=== PATIENT | female | born 1945 | race Caucasian/White ===

== ENCOUNTER 2021-07-28 18:19 | Inpatient (IN) ==
[2021-07-29] MEDS ORDERED: *HR* HYDROmorphone 2 MG TABLET PO PRN (04:00)
[2021-07-29 08:45] LABS: Basophils % 0.3 %; Eosinophils # 0.1 K/mcL (0.0-0.6); Eosinophils % 1.8 %; Hematocrit 29.1 % (35.3-44.9); Hemoglobin 8.6 g/dL (11.5-15.4); Immature Granulocytes % 1.2 % (0-4); Lymphocytes # 1.2 K/mcL (0.6-4.6); Lymphocytes % 16.8 %; Mean Corpuscular HGB Conc 29.6 g/dL (31.6-35.5); Mean Corpuscular Hemoglobin 24.2 pg (28.0-33.3); Mean Platelet Volume 9.4 fL (9.4-12.4); Monocytes % 13.1 %; Neutrophils # 4.9 K/mcL (1.6-8.9); Platelet Count 473 K/mcL (140-400); Red Blood Count 3.55 M/mcL (3.82-4.97); Red Cell Distribution Width 20.3 % (11.5-14.5); Segmented Neutrophils % 66.8 %; White Blood Count 7.3 K/mcL (4.3-11.1)
[2021-07-29 08:57] LABS: BUN/Creatinine Ratio 15 (6-26); Blood Urea Nitrogen 7 mg/dL (8-23); Carbon Dioxide 32 mEq/L (23-29); Chloride 103 mEq/L (98-107); Glucose 89 mg/dL (70-105); Osmolality,Calculated 293 (280-300); Potassium 3.5 mEq/L (3.5-5.1); Sodium 143 mEq/L (136-145); eGFR For African Americans > 60 (> 60); eGFR For Non-African Americans > 60 (> 60)
[2021-07-29] MEDS: Mirtazapine 15 MG TABLET PO SCH (09:29)
[2021-07-29] MEDS: polyethylene glycoL 3350 17 GM POWD.PACK PO SCH (09:29)
[2021-07-29] MEDS: *HR* OxyCODONE ER (12 HR) 10 MG TABLET PO SCH ×3 (09:30→23:45)
[2021-07-29] MEDS: Folic Acid 1 MG TABLET PO SCH (09:31)
[2021-07-29] MEDS: Gabapentin 100 MG CAPSULE PO SCH ×3 (09:31→20:22)
[2021-07-29] MEDS: amLODIPine 5 MG TABLET PO SCH (09:31)
[2021-07-29] MEDS: *HR* OxyCODONE/APAP 10/325 TABLET PO PRN (15:51)
[2021-07-30] MEDS: polyethylene glycoL 3350 17 GM POWD.PACK PO SCH (08:27)
[2021-07-30] MEDS: amLODIPine 5 MG TABLET PO SCH (08:28)
[2021-07-30] MEDS: Mirtazapine 15 MG TABLET PO SCH (08:28)
[2021-07-30] MEDS: Gabapentin 100 MG CAPSULE PO SCH ×3 (08:28→21:31)
[2021-07-30] MEDS: Folic Acid 1 MG TABLET PO SCH (08:28)
[2021-07-30] MEDS: *HR* OxyCODONE ER (12 HR) 10 MG TABLET PO SCH ×3 (08:29→23:46)
[2021-07-31] MEDS: polyethylene glycoL 3350 17 GM POWD.PACK PO SCH (07:44)
[2021-07-31] MEDS: Mirtazapine 15 MG TABLET PO SCH (07:44)
[2021-07-31] MEDS: Gabapentin 100 MG CAPSULE PO SCH ×2 (07:45→21:09)
[2021-07-31] MEDS: amLODIPine 5 MG TABLET PO SCH (07:45)
[2021-07-31] MEDS: *HR* OxyCODONE ER (12 HR) 10 MG TABLET PO SCH ×2 (07:45→16:13)
[2021-07-31] MEDS: Folic Acid 1 MG TABLET PO SCH (07:45)
[2021-07-31] MEDS: *HR* OxyCODONE/APAP 10/325 TABLET PO PRN ×2 (14:07→21:09)
[2021-08-01] MEDS: *HR* OxyCODONE ER (12 HR) 10 MG TABLET PO SCH ×3 (00:26→16:09)
[2021-08-01] MEDS: *HR* Enoxaparin 40 MG/0.4 ML SYRINGE SQ SCH (05:29)
[2021-08-01] MEDS: *HR* OxyCODONE/APAP 10/325 TABLET PO PRN ×3 (05:29→21:45)
[2021-08-01] MEDS: Folic Acid 1 MG TABLET PO SCH (08:25)
[2021-08-01] MEDS: amLODIPine 5 MG TABLET PO SCH (08:25)
[2021-08-01] MEDS: polyethylene glycoL 3350 17 GM POWD.PACK PO SCH (08:26)
[2021-08-01] MEDS ORDERED: Gabapentin 100 MG CAPSULE PO SCH (09:00)
[2021-08-01 09:21] LABS: % Iron Saturation 7 % (15-50); Iron 15 mcg/dL (50-170); Transferrin 145 mg/dL (203-362)
[2021-08-01 09:47] LABS: Folate > 22.3 ng/mL (3.0-16.0); Vitamin B12 > 1500 pg/mL (250-1100)
[2021-08-01] MEDS: Sennosides/Docusate Sodium TABLET PO SCH (21:37)
[2021-08-02] MEDS: *HR* OxyCODONE ER (12 HR) 10 MG TABLET PO SCH ×3 (01:57→16:23)
[2021-08-02] MEDS: *HR* Enoxaparin 40 MG/0.4 ML SYRINGE SQ SCH (06:04)
[2021-08-02] MEDS: Folic Acid 1 MG TABLET PO SCH (08:03)
[2021-08-02] MEDS: amLODIPine 5 MG TABLET PO SCH (08:03)
[2021-08-02] MEDS: Sennosides/Docusate Sodium TABLET PO SCH ×2 (08:04→19:50)
[2021-08-02] MEDS: *HR* OxyCODONE Immed Rel 5 MG TABLET PO PRN (19:50)
[2021-08-03] MEDS: *HR* OxyCODONE ER (12 HR) 10 MG TABLET PO SCH ×4 (00:46→23:50)
[2021-08-03] MEDS: *HR* Enoxaparin 40 MG/0.4 ML SYRINGE SQ SCH (06:21)
[2021-08-03] MEDS: Folic Acid 1 MG TABLET PO SCH (07:50)
[2021-08-03] MEDS: amLODIPine 5 MG TABLET PO SCH (07:50)
[2021-08-03] MEDS: Sennosides/Docusate Sodium TABLET PO SCH ×2 (07:51→20:25)
[2021-08-04] MEDS: *HR* Enoxaparin 40 MG/0.4 ML SYRINGE SQ SCH (05:50)
[2021-08-04] MEDS: amLODIPine 5 MG TABLET PO SCH (07:44)
[2021-08-04] MEDS: Sennosides/Docusate Sodium TABLET PO SCH ×2 (07:45→19:58)
[2021-08-04] MEDS: Folic Acid 1 MG TABLET PO SCH (07:45)
[2021-08-04] MEDS: *HR* OxyCODONE ER (12 HR) 10 MG TABLET PO SCH ×2 (07:45→17:08)
[2021-08-05] MEDS: *HR* OxyCODONE ER (12 HR) 10 MG TABLET PO SCH ×4 (01:40→23:21)
[2021-08-05] MEDS: *HR* Enoxaparin 40 MG/0.4 ML SYRINGE SQ SCH (06:03)
[2021-08-05] MEDS: amLODIPine 5 MG TABLET PO SCH (09:16)
[2021-08-05] MEDS: Folic Acid 1 MG TABLET PO SCH (09:16)
[2021-08-05] MEDS: Sennosides/Docusate Sodium TABLET PO SCH ×2 (09:16→19:57)
[2021-08-06] MEDS: *HR* Enoxaparin 40 MG/0.4 ML SYRINGE SQ SCH (05:33)
[2021-08-06] MEDS: Folic Acid 1 MG TABLET PO SCH (08:13)
[2021-08-06] MEDS: Sennosides/Docusate Sodium TABLET PO SCH ×2 (08:13→19:47)
[2021-08-06] MEDS: amLODIPine 5 MG TABLET PO SCH (08:13)
[2021-08-06] MEDS: *HR* OxyCODONE ER (12 HR) 10 MG TABLET PO SCH ×2 (08:13→17:14)
[2021-08-06] MEDS: *HR* OxyCODONE Immed Rel 5 MG TABLET PO PRN (21:44)
[2021-08-07] MEDS: *HR* OxyCODONE ER (12 HR) 10 MG TABLET PO SCH ×3 (00:24→15:54)
[2021-08-07] MEDS: *HR* Enoxaparin 40 MG/0.4 ML SYRINGE SQ SCH (05:34)
[2021-08-07] MEDS: Sennosides/Docusate Sodium TABLET PO SCH ×2 (07:59→19:28)
[2021-08-07] MEDS: Folic Acid 1 MG TABLET PO SCH (07:59)
[2021-08-07] MEDS: amLODIPine 5 MG TABLET PO SCH (07:59)
[2021-08-08] MEDS: *HR* OxyCODONE ER (12 HR) 10 MG TABLET PO SCH ×4 (00:31→23:59)
[2021-08-08] MEDS: *HR* OxyCODONE Immed Rel 5 MG TABLET PO PRN ×2 (02:56→19:40)
[2021-08-08] MEDS: *HR* Enoxaparin 40 MG/0.4 ML SYRINGE SQ SCH (05:25)
[2021-08-08 07:30] LABS: Basophils % 0.3 %; Eosinophils # 0.1 K/mcL (0.0-0.6); Eosinophils % 1.2 %; Hematocrit 26.8 % (35.3-44.9); Immature Granulocytes % 1.6 % (0-4); Lymphocytes # 1.8 K/mcL (0.6-4.6); Lymphocytes % 18.7 %; Mean Corpuscular HGB Conc 29.9 g/dL (31.6-35.5); Mean Corpuscular Hemoglobin 24.5 pg (28.0-33.3); Monocytes # 0.9 K/mcL (0.0-1.3); Monocytes % 9.7 %; Neutrophils # 6.5 K/mcL (1.6-8.9); Platelet Count 499 K/mcL (140-400); Red Blood Count 3.27 M/mcL (3.82-4.97); Red Cell Distribution Width 19.5 % (11.5-14.5); Segmented Neutrophils % 68.5 %; White Blood Count 9.5 K/mcL (4.3-11.1)
[2021-08-08] MEDS: Sennosides/Docusate Sodium TABLET PO SCH ×2 (07:51→19:42)
[2021-08-08] MEDS: Folic Acid 1 MG TABLET PO SCH (07:51)
[2021-08-08] MEDS: amLODIPine 5 MG TABLET PO SCH (07:51)
[2021-08-08 08:01] LABS: BUN/Creatinine Ratio 19 (6-26); Blood Urea Nitrogen 13 mg/dL (8-23); Calcium 9.4 mg/dL (8.6-10.3); Carbon Dioxide 33 mEq/L (23-29); Chloride 100 mEq/L (98-107); Glucose 95 mg/dL (70-105); Osmolality,Calculated 290 (280-300); Potassium 3.9 mEq/L (3.5-5.1); Sodium 140 mEq/L (136-145); eGFR For African Americans > 60 (> 60); eGFR For Non-African Americans > 60 (> 60)
[2021-08-08 10:34] LABS: Ferritin > 1500 ng/mL (10-120)
[2021-08-09] MEDS: *HR* OxyCODONE Immed Rel 5 MG TABLET PO PRN (02:06)
[2021-08-09] MEDS: *HR* Enoxaparin 40 MG/0.4 ML SYRINGE SQ SCH (05:55)
[2021-08-09] MEDS: amLODIPine 5 MG TABLET PO SCH (09:15)
[2021-08-09] MEDS: *HR* OxyCODONE ER (12 HR) 10 MG TABLET PO SCH ×2 (09:15→17:25)
[2021-08-09] MEDS: Folic Acid 1 MG TABLET PO SCH (09:15)
[2021-08-09] MEDS: Sennosides/Docusate Sodium TABLET PO SCH ×2 (09:15→20:25)
[2021-08-10] MEDS: *HR* OxyCODONE ER (12 HR) 10 MG TABLET PO SCH ×3 (00:21→17:25)
[2021-08-10] MEDS: *HR* Enoxaparin 40 MG/0.4 ML SYRINGE SQ SCH (05:52)
[2021-08-10 07:52] LABS: Basophils % 0.4 %; Eosinophils # 0.1 K/mcL (0.0-0.6); Eosinophils % 1.1 %; Hematocrit 29.3 % (35.3-44.9); Hemoglobin 8.6 g/dL (11.5-15.4); Immature Granulocytes % 1.2 % (0-4); Lymphocytes # 1.5 K/mcL (0.6-4.6); Lymphocytes % 17.6 %; Mean Corpuscular HGB Conc 29.4 g/dL (31.6-35.5); Mean Corpuscular Hemoglobin 24.3 pg (28.0-33.3); Mean Corpuscular Volume 82.8 fL (83.0-100.0); Mean Platelet Volume 9.3 fL (9.4-12.4); Monocytes % 12.6 %; Neutrophils # 5.6 K/mcL (1.6-8.9); Platelet Count 453 K/mcL (140-400); Red Blood Count 3.54 M/mcL (3.82-4.97); Red Cell Distribution Width 19.6 % (11.5-14.5); Segmented Neutrophils % 67.1 %; White Blood Count 8.3 K/mcL (4.3-11.1)
[2021-08-10 07:54] LABS: BUN/Creatinine Ratio 18 (6-26); Blood Urea Nitrogen 14 mg/dL (8-23); Calcium 10.1 mg/dL (8.6-10.3); Carbon Dioxide 33 mEq/L (23-29); Chloride 95 mEq/L (98-107); Glucose 95 mg/dL (70-105); Osmolality,Calculated 284 (280-300); Potassium 3.9 mEq/L (3.5-5.1); Sodium 137 mEq/L (136-145); eGFR For African Americans > 60 (> 60); eGFR For Non-African Americans > 60 (> 60)
[2021-08-10] MEDS: Sennosides/Docusate Sodium TABLET PO SCH ×2 (09:14→19:44)
[2021-08-10] MEDS: amLODIPine 5 MG TABLET PO SCH (09:14)
[2021-08-10] MEDS: Folic Acid 1 MG TABLET PO SCH (09:16)
[2021-08-11] MEDS: *HR* OxyCODONE Immed Rel 5 MG TABLET PO PRN ×3 (00:31→21:12)
[2021-08-11] MEDS: *HR* Enoxaparin 40 MG/0.4 ML SYRINGE SQ SCH (06:11)
[2021-08-11] MEDS: *HR* OxyCODONE ER (12 HR) 10 MG TABLET PO SCH ×2 (06:11→17:47)
[2021-08-11 06:48] LABS: Basophils % 0.4 %; Eosinophils % 0.5 %; Hematocrit 28.8 % (35.3-44.9); Hemoglobin 8.6 g/dL (11.5-15.4); Immature Granulocytes % 1.3 % (0-4); Lymphocytes # 1.3 K/mcL (0.6-4.6); Lymphocytes % 15.1 %; Mean Corpuscular HGB Conc 29.9 g/dL (31.6-35.5); Mean Corpuscular Hemoglobin 24.2 pg (28.0-33.3); Mean Corpuscular Volume 81.1 fL (83.0-100.0); Mean Platelet Volume 9.2 fL (9.4-12.4); Monocytes # 1.1 K/mcL (0.0-1.3); Monocytes % 13.1 %; Neutrophils # 5.8 K/mcL (1.6-8.9); Platelet Count 443 K/mcL (140-400); Red Blood Count 3.55 M/mcL (3.82-4.97); Red Cell Distribution Width 19.5 % (11.5-14.5); Segmented Neutrophils % 69.6 %; White Blood Count 8.3 K/mcL (4.3-11.1)
[2021-08-11 07:10] LABS: BUN/Creatinine Ratio 20 (6-26); Blood Urea Nitrogen 14 mg/dL (8-23); Calcium 9.6 mg/dL (8.6-10.3); Carbon Dioxide 33 mEq/L (23-29); Chloride 95 mEq/L (98-107); Glucose 99 mg/dL (70-105); Osmolality,Calculated 289 (280-300); Potassium 3.7 mEq/L (3.5-5.1); Sodium 139 mEq/L (136-145); eGFR For African Americans > 60 (> 60); eGFR For Non-African Americans > 60 (> 60)
[2021-08-11] MEDS: amLODIPine 5 MG TABLET PO SCH (08:30)
[2021-08-11] MEDS ORDERED: 0.9 % Sodium Chloride 1,000 ML IVC SCH (08:30)
[2021-08-11] MEDS: Folic Acid 1 MG TABLET PO SCH (08:31)
[2021-08-11] MEDS: Sennosides/Docusate Sodium TABLET PO SCH ×2 (08:31→21:12)
[2021-08-12] MEDS: *HR* OxyCODONE ER (12 HR) 10 MG TABLET PO SCH ×2 (06:04→17:43)
[2021-08-12] MEDS: *HR* Enoxaparin 40 MG/0.4 ML SYRINGE SQ SCH (06:04)
[2021-08-12] MEDS ORDERED: D5% in 0.45% NACL 1,000 ML IVC SCH (07:45)
[2021-08-12] MEDS: Sennosides/Docusate Sodium TABLET PO SCH ×2 (09:23→19:56)
[2021-08-12] MEDS: amLODIPine 5 MG TABLET PO SCH (09:23)
[2021-08-12] MEDS: Folic Acid 1 MG TABLET PO SCH (09:23)
[2021-08-13] MEDS: *HR* OxyCODONE Immed Rel 5 MG TABLET PO PRN (03:35)
[2021-08-13] MEDS: *HR* Enoxaparin 40 MG/0.4 ML SYRINGE SQ SCH (05:37)
[2021-08-13] MEDS: *HR* OxyCODONE ER (12 HR) 10 MG TABLET PO SCH ×2 (05:38→18:14)
[2021-08-13 07:25] LABS: Basophils % 0.3 %; Eosinophils # 0.1 K/mcL (0.0-0.6); Eosinophils % 0.5 %; Hematocrit 26.1 % (35.3-44.9); Hemoglobin 7.8 g/dL (11.5-15.4); Immature Granulocytes % 1.3 % (0-4); Lymphocytes # 1.4 K/mcL (0.6-4.6); Lymphocytes % 14.7 %; Mean Corpuscular HGB Conc 29.9 g/dL (31.6-35.5); Mean Corpuscular Hemoglobin 24.5 pg (28.0-33.3); Mean Corpuscular Volume 81.8 fL (83.0-100.0); Mean Platelet Volume 9.6 fL (9.4-12.4); Monocytes # 1.4 K/mcL (0.0-1.3); Monocytes % 14.9 %; Neutrophils # 6.3 K/mcL (1.6-8.9); Platelet Count 363 K/mcL (140-400); Red Blood Count 3.19 M/mcL (3.82-4.97); Red Cell Distribution Width 19.8 % (11.5-14.5); Segmented Neutrophils % 68.3 %; White Blood Count 9.2 K/mcL (4.3-11.1)
[2021-08-13 08:19] LABS: BUN/Creatinine Ratio 24 (6-26); Blood Urea Nitrogen 13 mg/dL (8-23); Calcium 9.2 mg/dL (8.6-10.3); Carbon Dioxide 33 mEq/L (23-29); Chloride 97 mEq/L (98-107); Glucose 93 mg/dL (70-105); Magnesium 1.4 mg/dL (1.6-2.6); Osmolality,Calculated 284 (280-300); Potassium 3.5 mEq/L (3.5-5.1); Sodium 137 mEq/L (136-145); eGFR For African Americans > 60 (> 60); eGFR For Non-African Americans > 60 (> 60)
[2021-08-13] MEDS: Sennosides/Docusate Sodium TABLET PO SCH ×2 (08:27→19:38)
[2021-08-13] MEDS: amLODIPine 5 MG TABLET PO SCH (08:27)
[2021-08-13] MEDS: Folic Acid 1 MG TABLET PO SCH (08:28)
[2021-08-13] MEDS ORDERED: Ondansetron ODT 4 MG TAB.RAPDIS SL PRN (11:30)
[2021-08-13] MEDS: polyethylene glycoL 3350 17 GM POWD.PACK PO SCH (19:39)
[2021-08-14] MEDS: *HR* Enoxaparin 40 MG/0.4 ML SYRINGE SQ SCH (05:55)
[2021-08-14] MEDS: *HR* OxyCODONE ER (12 HR) 10 MG TABLET PO SCH ×2 (05:56→17:47)
[2021-08-14] MEDS: Folic Acid 1 MG TABLET PO SCH (08:32)
[2021-08-14] MEDS: polyethylene glycoL 3350 17 GM POWD.PACK PO SCH (08:33)
[2021-08-14] MEDS: Sennosides/Docusate Sodium TABLET PO SCH ×2 (08:33→20:20)
[2021-08-14] MEDS: amLODIPine 5 MG TABLET PO SCH (08:33)
[2021-08-15] MEDS: *HR* OxyCODONE ER (12 HR) 10 MG TABLET PO SCH ×2 (06:35→18:22)
[2021-08-15] MEDS: *HR* Enoxaparin 40 MG/0.4 ML SYRINGE SQ SCH (06:35)
[2021-08-15] MEDS: Sennosides/Docusate Sodium TABLET PO SCH ×2 (08:33→19:55)
[2021-08-15] MEDS: amLODIPine 5 MG TABLET PO SCH (08:33)
[2021-08-15] MEDS: Folic Acid 1 MG TABLET PO SCH (08:33)
[2021-08-15] MEDS: polyethylene glycoL 3350 17 GM POWD.PACK PO SCH (08:33)
[2021-08-15] MEDS: Ibuprofen 400 MG TABLET PO PRN (16:35)
[2021-08-16] MEDS: *HR* OxyCODONE Immed Rel 5 MG TABLET PO PRN (01:35)
[2021-08-16] MEDS: *HR* OxyCODONE ER (12 HR) 10 MG TABLET PO SCH ×2 (05:14→17:01)
[2021-08-16] MEDS: *HR* Enoxaparin 40 MG/0.4 ML SYRINGE SQ SCH (05:14)
[2021-08-16] MEDS: polyethylene glycoL 3350 17 GM POWD.PACK PO SCH (07:56)
[2021-08-16] MEDS: amLODIPine 5 MG TABLET PO SCH (07:56)
[2021-08-16] MEDS: Sennosides/Docusate Sodium TABLET PO SCH ×2 (07:57→21:42)
[2021-08-16] MEDS: Folic Acid 1 MG TABLET PO SCH (07:57)
[2021-08-16] MEDS: Ibuprofen 400 MG TABLET PO PRN (21:42)
[2021-08-17] MEDS: *HR* Enoxaparin 40 MG/0.4 ML SYRINGE SQ SCH (06:02)
[2021-08-17] MEDS: *HR* OxyCODONE ER (12 HR) 10 MG TABLET PO SCH ×2 (06:02→17:25)
[2021-08-17] MEDS: Ibuprofen 400 MG TABLET PO PRN ×2 (08:11→20:15)
[2021-08-17] MEDS: Folic Acid 1 MG TABLET PO SCH (08:26)
[2021-08-17] MEDS: polyethylene glycoL 3350 17 GM POWD.PACK PO SCH (08:27)
[2021-08-17] MEDS: amLODIPine 5 MG TABLET PO SCH (08:27)
[2021-08-17] MEDS: Sennosides/Docusate Sodium TABLET PO SCH ×2 (08:28→20:15)
[2021-08-18] MEDS: Ibuprofen 400 MG TABLET PO PRN (04:11)
[2021-08-18] MEDS: *HR* Enoxaparin 40 MG/0.4 ML SYRINGE SQ SCH (06:01)
[2021-08-18] MEDS: *HR* OxyCODONE ER (12 HR) 10 MG TABLET PO SCH ×2 (06:02→17:46)
[2021-08-18] MEDS: amLODIPine 5 MG TABLET PO SCH (08:00)
[2021-08-18] MEDS: Sennosides/Docusate Sodium TABLET PO SCH ×2 (08:00→21:16)
[2021-08-18] MEDS: Folic Acid 1 MG TABLET PO SCH (08:00)
[2021-08-18] MEDS: polyethylene glycoL 3350 17 GM POWD.PACK PO SCH (08:01)
[2021-08-19] MEDS: *HR* Enoxaparin 40 MG/0.4 ML SYRINGE SQ SCH (05:56)
[2021-08-19] MEDS: *HR* OxyCODONE ER (12 HR) 10 MG TABLET PO SCH ×2 (05:57→16:53)
[2021-08-19] MEDS: amLODIPine 5 MG TABLET PO SCH (08:08)
[2021-08-19] MEDS: Folic Acid 1 MG TABLET PO SCH (08:08)
[2021-08-19] MEDS: Sennosides/Docusate Sodium TABLET PO SCH ×2 (08:08→19:32)
[2021-08-20] MEDS: *HR* OxyCODONE ER (12 HR) 10 MG TABLET PO SCH ×3 (05:29→17:29)
[2021-08-20] MEDS: *HR* Enoxaparin 40 MG/0.4 ML SYRINGE SQ SCH (05:29)
[2021-08-20] MEDS: Sennosides/Docusate Sodium TABLET PO SCH ×2 (08:53→21:19)
[2021-08-20] MEDS: Folic Acid 1 MG TABLET PO SCH (08:53)
[2021-08-20] MEDS: amLODIPine 5 MG TABLET PO SCH (08:53)
[2021-08-20 09:29] LABS: Basophils % 0.2 %; Eosinophils % 0.1 %; Hematocrit 30.2 % (35.3-44.9); Immature Granulocytes % 1.5 % (0-4); Lymphocytes # 1.3 K/mcL (0.6-4.6); Lymphocytes % 11.5 %; Mean Corpuscular HGB Conc 29.8 g/dL (31.6-35.5); Mean Corpuscular Hemoglobin 24.2 pg (28.0-33.3); Mean Corpuscular Volume 81.2 fL (83.0-100.0); Mean Platelet Volume 9.4 fL (9.4-12.4); Monocytes # 1.1 K/mcL (0.0-1.3); Monocytes % 9.5 %; Platelet Count 483 K/mcL (140-400); Red Blood Count 3.72 M/mcL (3.82-4.97); Segmented Neutrophils % 77.2 %; White Blood Count 11.2 K/mcL (4.3-11.1)
[2021-08-20 09:49] LABS: Alanine Aminotransferase 44 Units/L (7-52); Albumin 3.3 g/dL (3.5-5.7); Albumin/Globulin Ratio 0.8 (1.1-2.2); Alkaline Phosphatase 356 Units/L (34-104); Aspartate Amino Transferase 45 Units/L (13-39); BUN/Creatinine Ratio 44 (6-26); Bilirubin,Total 0.4 mg/dL (0.3-1.0); Blood Urea Nitrogen 24 mg/dL (8-23); Calcium 9.7 mg/dL (8.6-10.3); Carbon Dioxide 28 mEq/L (23-29); Chloride 99 mEq/L (98-107); Glucose 111 mg/dL (70-105); Osmolality,Calculated 293 (280-300); Potassium 3.6 mEq/L (3.5-5.1); Sodium 139 mEq/L (136-145); Total Protein 7.3 g/dL (6.4-8.9); eGFR For African Americans > 60 (> 60); eGFR For Non-African Americans > 60 (> 60)
[2021-08-20 09:57] LABS: Neutrophils # 8.7 K/mcL (1.6-8.9)
[2021-08-20 16:46] LABS: Bilirubin,Urine Negative (Negative); Blood,Urine Negative (Negative); Clarity,Urine Clear (Clear); Color,Urine Yellow (Yellow); Glucose,Urine (UA) Normal (Normal); Ketones,Urine 15 mg/dL (Negative); Leukocyte Esterase,Urine Negative (Negative); Nitrite,Urine Negative (Negative); Protein,Urine Trace mg/dL (Neg-Trace); Urobilinogen,Urine Normal (Normal)
[2021-08-20] MEDS ORDERED: *HR* Metoprolol 5 MG/5 ML VIAL IVP PRN ×2 (16:58→18:21)
[2021-08-20] MEDS ORDERED: Isovue-370 500 ML BOTTLE IVP ONE ×4 (16:59→18:57)
[2021-08-20] MEDS: Piperacillin/Tazobactam 3.375 GM in 0.9 % Sodium Chloride Mini Bag 100 ML IVPB SCH (18:20)
[2021-08-20] MEDS ORDERED: Ondansetron 4 MG/2 ML VIAL IVP PRN (20:42)
[2021-08-20] MEDS ORDERED: Morphine Sulfate 2 MG/ML SYRINGE IVP PRN (20:48)
[2021-08-20] MEDS: 0.9 % Sodium Chloride 1,000 ML IVC SCH (22:02)
[2021-08-21] MEDS: Piperacillin/Tazobactam 3.375 GM in 0.9 % Sodium Chloride Mini Bag 100 ML IVPB SCH ×3 (02:02→19:00)
[2021-08-21] MEDS: *HR* OxyCODONE ER (12 HR) 10 MG TABLET PO SCH ×2 (05:56→18:59)
[2021-08-21] MEDS: *HR* Enoxaparin 40 MG/0.4 ML SYRINGE SQ SCH (05:56)
[2021-08-21 07:15] LABS: Basophils % 0.2 %; Eosinophils % 0.4 %; Hematocrit 26.3 % (35.3-44.9); Hemoglobin 7.8 g/dL (11.5-15.4); Immature Granulocytes % 1.5 % (0-4); Lymphocytes # 1.7 K/mcL (0.6-4.6); Lymphocytes % 15.5 %; Mean Corpuscular HGB Conc 29.7 g/dL (31.6-35.5); Mean Corpuscular Volume 80.9 fL (83.0-100.0); Mean Platelet Volume 9.4 fL (9.4-12.4); Monocytes # 1.2 K/mcL (0.0-1.3); Monocytes % 10.6 %; Neutrophils # 7.8 K/mcL (1.6-8.9); Platelet Count 446 K/mcL (140-400); Red Blood Count 3.25 M/mcL (3.82-4.97); Red Cell Distribution Width 20.3 % (11.5-14.5); Segmented Neutrophils % 71.8 %; White Blood Count 10.9 K/mcL (4.3-11.1)
[2021-08-21 07:19] LABS: BUN/Creatinine Ratio 45 (6-26); Blood Urea Nitrogen 26 mg/dL (8-23); Carbon Dioxide 28 mEq/L (23-29); Chloride 103 mEq/L (98-107); Glucose 96 mg/dL (70-105); Osmolality,Calculated 295 (280-300); Potassium 3.5 mEq/L (3.5-5.1); Sodium 140 mEq/L (136-145); eGFR For African Americans > 60 (> 60); eGFR For Non-African Americans > 60 (> 60)
[2021-08-21] MEDS: Folic Acid 1 MG TABLET PO SCH (10:37)
[2021-08-21] MEDS: Sennosides/Docusate Sodium TABLET PO SCH ×2 (10:37→21:08)
[2021-08-21] MEDS: 0.9 % Sodium Chloride 1,000 ML IVC SCH ×2 (10:38→22:09)
[2021-08-21] MEDS: amLODIPine 5 MG TABLET PO SCH (10:40)
[2021-08-21] MEDS ORDERED: Nitroglycerin 0.4 MG TAB.SUBL SL PRN (18:48)
[2021-08-21] MEDS ORDERED: *HR* Metoprolol 5 MG/5 ML VIAL IVP PRN (19:07)
[2021-08-22] MEDS: Piperacillin/Tazobactam 3.375 GM in 0.9 % Sodium Chloride Mini Bag 100 ML IVPB SCH ×2 (02:34→09:12)
[2021-08-22] MEDS: *HR* OxyCODONE ER (12 HR) 10 MG TABLET PO SCH ×2 (05:18→19:19)
[2021-08-22] MEDS: *HR* Enoxaparin 40 MG/0.4 ML SYRINGE SQ SCH (05:18)
[2021-08-22 06:50] LABS: Basophils % 0.2 %; Eosinophils # 0.1 K/mcL (0.0-0.6); Eosinophils % 1.1 %; Hematocrit 23.8 % (35.3-44.9); Immature Granulocytes % 3.3 % (0-4); Lymphocytes # 1.5 K/mcL (0.6-4.6); Lymphocytes % 14.9 %; Mean Corpuscular HGB Conc 29.4 g/dL (31.6-35.5); Mean Corpuscular Hemoglobin 23.9 pg (28.0-33.3); Mean Corpuscular Volume 81.2 fL (83.0-100.0); Monocytes # 1.1 K/mcL (0.0-1.3); Neutrophils # 7.1 K/mcL (1.6-8.9); Nucleated Red Blood Cells 0.2 /100 WBC (0); Platelet Count 395 K/mcL (140-400); Red Blood Count 2.93 M/mcL (3.82-4.97); Red Cell Distribution Width 20.3 % (11.5-14.5); Segmented Neutrophils % 69.5 %; White Blood Count 10.2 K/mcL (4.3-11.1)
[2021-08-22 07:06] LABS: BUN/Creatinine Ratio 41 (6-26); Blood Urea Nitrogen 19 mg/dL (8-23); Calcium 8.5 mg/dL (8.6-10.3); Carbon Dioxide 27 mEq/L (23-29); Chloride 104 mEq/L (98-107); Glucose 87 mg/dL (70-105); Magnesium 1.5 mg/dL (1.6-2.6); Osmolality,Calculated 288 (280-300); Potassium 3.6 mEq/L (3.5-5.1); Sodium 138 mEq/L (136-145); eGFR For African Americans > 60 (> 60); eGFR For Non-African Americans > 60 (> 60)
[2021-08-22] MEDS: Aspirin 81 MG TAB.CHEW PO SCH (09:12)
[2021-08-22] MEDS: Sennosides/Docusate Sodium TABLET PO SCH ×2 (09:12→22:39)
[2021-08-22] MEDS: amLODIPine 5 MG TABLET PO SCH (09:12)
[2021-08-22] MEDS: Folic Acid 1 MG TABLET PO SCH (09:12)
[2021-08-22] MEDS: 0.9 % Sodium Chloride 1,000 ML IVC SCH (10:35)
[2021-08-22] MEDS ORDERED: *HR* HYDROmorphone (PF) 1 MG/ML SYRINGE IVP ONE (22:19)
[2021-08-23] MEDS: *HR* Enoxaparin 40 MG/0.4 ML SYRINGE SQ SCH (05:07)
[2021-08-23] MEDS: *HR* OxyCODONE ER (12 HR) 10 MG TABLET PO SCH ×2 (05:07→17:14)
[2021-08-23 06:34] LABS: Basophils % 0.3 %; Eosinophils # 0.1 K/mcL (0.0-0.6); Eosinophils % 1.2 %; Hematocrit 23.1 % (35.3-44.9); Hemoglobin 6.8 g/dL (11.5-15.4); Lymphocytes # 1.1 K/mcL (0.6-4.6); Lymphocytes % 10.8 %; Mean Corpuscular HGB Conc 29.4 g/dL (31.6-35.5); Mean Corpuscular Hemoglobin 24.3 pg (28.0-33.3); Mean Corpuscular Volume 82.5 fL (83.0-100.0); Mean Platelet Volume 9.7 fL (9.4-12.4); Monocytes % 9.9 %; Neutrophils # 7.3 K/mcL (1.6-8.9); Platelet Count 406 K/mcL (140-400); Red Cell Distribution Width 20.4 % (11.5-14.5); Segmented Neutrophils % 75.8 %; White Blood Count 9.7 K/mcL (4.3-11.1)
[2021-08-23 06:53] LABS: BUN/Creatinine Ratio 44 (6-26); Blood Urea Nitrogen 16 mg/dL (8-23); Calcium 8.5 mg/dL (8.6-10.3); Carbon Dioxide 26 mEq/L (23-29); Chloride 102 mEq/L (98-107); Glucose 81 mg/dL (70-105); Magnesium 1.7 mg/dL (1.6-2.6); Osmolality,Calculated 284 (280-300); Potassium 3.4 mEq/L (3.5-5.1); Sodium 137 mEq/L (136-145); eGFR For African Americans > 60 (> 60); eGFR For Non-African Americans > 60 (> 60)
[2021-08-23] MEDS: Sennosides/Docusate Sodium TABLET PO SCH ×2 (07:57→21:38)
[2021-08-23] MEDS: amLODIPine 5 MG TABLET PO SCH (08:05)
[2021-08-23] MEDS: Aspirin 81 MG TAB.CHEW PO SCH (08:06)
[2021-08-23] MEDS: Folic Acid 1 MG TABLET PO SCH (08:06)
[2021-08-23] MEDS: Megestrol Acetate 400 MG/10 ML UDC PO SCH (11:02)
[2021-08-23] MEDS: *HR* OxyCODONE Immed Rel 5 MG TABLET PO PRN (21:38)
[2021-08-24] MEDS: *HR* OxyCODONE Immed Rel 5 MG TABLET PO PRN (04:03)
[2021-08-24] MEDS: *HR* OxyCODONE ER (12 HR) 10 MG TABLET PO SCH ×2 (06:06→17:10)
[2021-08-24] MEDS: *HR* Enoxaparin 40 MG/0.4 ML SYRINGE SQ SCH (06:06)
[2021-08-24] MEDS: Folic Acid 1 MG TABLET PO SCH (07:24)
[2021-08-24] MEDS: Sennosides/Docusate Sodium TABLET PO SCH ×2 (07:24→21:36)
[2021-08-24] MEDS: amLODIPine 5 MG TABLET PO SCH (07:24)
[2021-08-24] MEDS: Megestrol Acetate 400 MG/10 ML UDC PO SCH (07:24)
[2021-08-24] MEDS: Aspirin 81 MG TAB.CHEW PO SCH (07:24)
[2021-08-25] MEDS: *HR* OxyCODONE Immed Rel 5 MG TABLET PO PRN ×3 (00:23→19:42)
[2021-08-25] MEDS: *HR* OxyCODONE ER (12 HR) 10 MG TABLET PO SCH ×2 (05:58→17:18)
[2021-08-25] MEDS: *HR* Enoxaparin 40 MG/0.4 ML SYRINGE SQ SCH (05:58)
[2021-08-25] MEDS: amLODIPine 5 MG TABLET PO SCH (10:15)
[2021-08-25] MEDS: Folic Acid 1 MG TABLET PO SCH (10:15)
[2021-08-25] MEDS: Megestrol Acetate 400 MG/10 ML UDC PO SCH (10:15)
[2021-08-25] MEDS: Aspirin 81 MG TAB.CHEW PO SCH (10:15)
[2021-08-25] MEDS: Sennosides/Docusate Sodium TABLET PO SCH ×2 (10:30→19:41)
[2021-08-25 14:22] LABS: Hematocrit 24.1 % (35.3-44.9); Hemoglobin 7.1 g/dL (11.5-15.4); Mean Corpuscular HGB Conc 29.5 g/dL (31.6-35.5); Mean Corpuscular Hemoglobin 24.3 pg (28.0-33.3); Mean Corpuscular Volume 82.5 fL (83.0-100.0); Mean Platelet Volume 9.2 fL (9.4-12.4); Platelet Count 439 K/mcL (140-400); Red Blood Count 2.92 M/mcL (3.82-4.97); Red Cell Distribution Width 20.2 % (11.5-14.5); White Blood Count 10.9 K/mcL (4.3-11.1)
[2021-08-26] MEDS: *HR* OxyCODONE Immed Rel 5 MG TABLET PO PRN ×2 (01:48→21:13)
[2021-08-26] MEDS: *HR* OxyCODONE ER (12 HR) 10 MG TABLET PO SCH ×2 (05:44→17:25)
[2021-08-26] MEDS: *HR* Enoxaparin 40 MG/0.4 ML SYRINGE SQ SCH (05:46)
[2021-08-26] MEDS: Aspirin 81 MG TAB.CHEW PO SCH (09:50)
[2021-08-26] MEDS: Megestrol Acetate 400 MG/10 ML UDC PO SCH (09:50)
[2021-08-26] MEDS: amLODIPine 5 MG TABLET PO SCH (09:51)
[2021-08-26] MEDS: Sennosides/Docusate Sodium TABLET PO SCH ×2 (09:51→20:55)
[2021-08-26] MEDS: Folic Acid 1 MG TABLET PO SCH (09:51)
[2021-08-27] MEDS: *HR* OxyCODONE Immed Rel 5 MG TABLET PO PRN ×2 (02:17→08:39)
[2021-08-27] MEDS: *HR* Enoxaparin 40 MG/0.4 ML SYRINGE SQ SCH (05:18)
[2021-08-27] MEDS: *HR* OxyCODONE ER (12 HR) 10 MG TABLET PO SCH (05:18)
[2021-08-27] MEDS: Sennosides/Docusate Sodium TABLET PO SCH (08:38)
[2021-08-27] MEDS: Megestrol Acetate 400 MG/10 ML UDC PO SCH (08:38)
[2021-08-27] MEDS: Folic Acid 1 MG TABLET PO SCH (08:39)
[2021-08-27] MEDS: Aspirin 81 MG TAB.CHEW PO SCH (08:39)
[2021-08-27] MEDS: amLODIPine 5 MG TABLET PO SCH (08:39)
[2021-08-27 11:56] VITALS: BP 118/66; PULSE 80; RESP 14; TEMP 97.4; O2SAT 98
== END 2021-08-27 13:57 | disposition hospice, home (50) | DRG 945 ==
LOC: INPPIK 07-29 03:07
PROVIDERS: ADMIT Internal Medicine; ATTEND Family Medicine